=== PATIENT | male | born 1965 | race Caucasian/White ===

== ENCOUNTER 2023-09-03 18:13 | Emergency (ER) | payer OTHER ==
[2023-09-03 18:23] VITALS: BP 112/77; PULSE 84; RESP 20; TEMP 97.6; BMI 33.2
[2023-09-03 21:34] LABS: BASO % 0.6 % (0-2.0); EOS % 5.1 % (0-4.5); HEMATOCRIT 41.7 % (35.4-49); HEMOGLOBIN 14.7 GM/dL (11.7-16.9); LYMPH % 23.6 % (8-40); MCH 33.5 pg (25.7-33.7); MCHC 35.3 g/dl (32.0-35.9); MEAN PLT VOLUME 7.2 fl (7.5-11.1); MONO % 8.5 % (3.8-10.2); NEUT % 62.2 % (42.8-82.8); PLATELET COUNT 177 10^3/uL (134-434); RBC 4.39 M/mm3 (4.00-5.60); RDW 13.2 % (11.9-15.9); WHITE BLOOD COUNT 5.1 K/mm3 (4.0-10.0)
[2023-09-03 22:14] LABS: POTASSIUM 3.7 mmol/L (3.5-5.1)
[2023-09-03 22:16] LABS: CALCIUM 8.2 mg/dL (8.5-10.1)
[2023-09-03 22:17] LABS: ALBUMIN 3.3 g/dl (3.4-5.0); BLOOD UREA NITROGEN 10.6 mg/dL (7-18)
[2023-09-03 22:20] LABS: CREATININE 0.9 mg/dL (0.55-1.3)
[2023-09-03 22:21] LABS: BILIRUBIN,TOTAL 0.3 mg/dL (0.2-1)
[2023-09-03 22:25] LABS: N-TERMINAL BNP 40.4 pg/ml (5-125)
== END 2023-09-03 23:40 | disposition home or self-care (01) ==
LOC: JER 18:13
DX: J18.9 Pneumonia, unspecified organism (principal); J10.1 Influenza due to other identified influenza virus with other respiratory manifestations; R06.00 Dyspnea, unspecified
CPT/HCPCS: 36415; 71250-TC; 80053; 82550; 83880; 84484; 85025; 87040; 93005; 93010; 99285-25